=== PATIENT | male | born 1995 | race Two or more races ===

== ENCOUNTER 2021-08-02 10:46 | Emergency (ER) | payer MEDICAID ==
[~2021-08-02] VITALS: Ht 172.7 cm; Wt 80.0 kg
[2021-08-02] MEDS ORDERED: IBUP-2030 MT (10:54)
[2021-08-02] MEDS ORDERED: KETOROLAC 60MG/2ML VIAL IM ONE (11:00)
[2021-08-02 11:09] VITALS: BP 113/74
[2021-08-02] MEDS ORDERED: ACETAMINOPHEN 325MG TABLET PO ONE (11:15)
[2021-08-02] MEDS ORDERED: LIDOCAINE HCL 1% 20ML VIAL (Pyxis) INJ INFIL ONE (11:45)
[2021-08-02] MEDS ORDERED: CEFTRIAXONE SODIUM 1 G/VIAL IM ONE (11:45)
[2021-08-02] MEDS ORDERED: ALBU6.7H9 INH (11:58)
[2021-08-02] MEDS ORDERED: DOXY100C5 MT (11:58)
== END 2021-08-02 12:36 | disposition home or self-care (01) ==
LOC: ER 11:01
DX: M54.50 Low back pain, unspecified (principal); F20.9 Schizophrenia, unspecified; F12.10 Cannabis abuse, uncomplicated; Z20.822 Contact with and (suspected) exposure to COVID-19
CPT/HCPCS: 71045; 96372; 99284; C9803; J0696; J1885; U0003; U0005